=== PATIENT | female | born 1980 | race Caucasian/White ===

== ENCOUNTER → 2016-11-04 | Outpatient (CLI) | payer OTHER ==
--- NOTE | 2016-11-04 12:51 | DIAGNOSTIC IMAGING REPORT ---
PROCEDURE: US COMPLETE PELVIC W/TRANSVAG INDICATION: PELVIC PAIN TECHNIQUE: Transabdominal and endovaginal flores scale and color Doppler sonographic images of the female pelvis were obtained. COMPARISON: None. FINDINGS: TRANSABDOMINAL SCANS: The uterus is of normal size 8.7 cm Kidneys are normal. TRANSVAGINAL SCANS: The uterus is variable in position. Myometrium is normal. The endometrium is heterogeneous and irregularly shaped and measures 15 mm. There is an endometrial polyp which measures 1.2 x 1.7 x 1.0 cm. Right ovary measures 2.9 x 2.3 x 3.9 centimeters. On the right ovary there is either a hemorrhagic cyst or an endometrioma that measures 2.3 x 1.8 x 1.8 cm. The left ovary is normal measuring 2.2 x 2.1 x 1.7 cm. There is a trace of free fluid in the cul-de-sac. IMPRESSION: 1. Irregular endometrium with a 1.7 cm polyp. 2. Right adnexal hemorrhagic cyst versus endometrioma that measures 2.3 cm.
== END ==
LOC: US SRH 11:00
DX: N84.0 Polyp of corpus uteri (principal)